=== PATIENT | female | born 1935 | race Caucasian/White ===

== ENCOUNTER 2017-02-05 08:22 | Outpatient (CLI) | payer MEDICARE, OTHER ==
[2017-02-05 12:34] LABS: #Eosinphils 0.2 thou/uL (0.0-0.7); #Lymphocytes 2.4 thou/uL (1.20-3.40); #Monocytes 0.3 thou/uL (0.11-0.59); #Neutrophils 2.5 thou/uL (1.40-6.50); %Basophils 0.9 % (0.0-1.0); %Eosinophils 4.4 % (0.0-10.0); %Monocytes 6.1 % (0.0-10.0); %Neutrophils 45.6 % (42.0-75.0); Hemoglobin 13.1 g/dL (12.0-16.0); Mean Corpuscular HGB CONC 32.2 g/dL (32.0-36.0); Mean Corpuscular Hemoglobin 28.7 pg (27.0-31.0); Mean Corpuscular Volume 89.1 fl (81.0-99.0); Mean Platelet Volume 6.8 fL (7.4-10.4); Platelet Count 245 thou/uL (130-400); RBC Distribution Width 11.6 % (11.5-14.5); Red Blood Cell (RBC) Count 4.58 mill/uL (4.20-5.40); White Blood Cell (WBC) Count 5.5 thou/uL (4.8-10.8)
[2017-02-05 12:46] LABS: ALT (SGPT) 9 U/L (8-55); AST (SGOT) 14 U/L (5-34); Albumin 4.2 g/dL (3.4-4.8); Alkaline Phosphatase 76 U/L (40-150); Anion Gap 17 mmol/L (10-20); BUN (Urea Nitrogen) 13 mg/dL (9.8-20.1); Bilirubin, Total 0.6 mg/dL (0.2-1.2); Calc. Creatinine Clearance 0 mL/min (70-130); Carbon Dioxide 21 mmol/L (23-31); Cardiac Risk 2.4 (Less than 4.5); Chloride 108 mmol/L (98-107); Cholesterol 167 mg/dl (< 200 Desired); Estimated GFR-MDRD 64; Globulin 2.8 g/dL (2.4-3.5); Glucose 90 mg/dL (83-110); HDL Cholesterol 69 mg/dL (>60 Neg Risk); LDL Cholesterol, Calculated 79 mg/dL; Potassium 4.1 mmol/L (3.5-5.1); Sodium 142 mmol/L (136-145); Triglycerides 93 mg/dL (Less than 150)
[2017-02-05 13:27] LABS: Bilirubin Negative (Negative); Blood, Urine Negative (Negative); Clarity Clear (Clear); Glucose, Urine (Dipstick) Negative (Negative); Leukocyte Negative (Negative); Nitrite Negative (Negative); Protein, Urine (Dipstick) Negative (Neg-Trace); Urobilinogen 0.2 mg/dL (0.2-1.0)
== END 2017-02-05 08:23 | disposition home or self-care (01) ==
LOC: NAVSJIPCSP 08:22
PROVIDERS: ATTEND Internal Medicine
DX: E78.5 Hyperlipidemia, unspecified (principal); I11.9 Hypertensive heart disease without heart failure; Z79.899 Other long term (current) drug therapy
CPT/HCPCS: 36415; 80053; 80061; 81003; 85025

== ENCOUNTER 2018-01-10 09:23 | Emergency (ER) | payer MEDICARE, OTHER ==
[2018-01-10 09:59] LABS: #Basophils 0.1 thou/uL (0.0-0.2); #Eosinphils 0.2 thou/uL (0.0-0.7); #Lymphocytes 2.2 thou/uL (1.20-3.40); #Monocytes 0.3 thou/uL (0.11-0.59); #Neutrophils 2.8 thou/uL (1.40-6.50); %Eosinophils 2.8 % (0.0-10.0); %Lymphocytes 40.3 % (21.0-51.0); %Monocytes 5.2 % (0.0-10.0); %Neutrophils 50.7 % (42.0-75.0); Hemoglobin 13.7 g/dL (12.0-16.0); Mean Corpuscular HGB CONC 32.3 g/dL (32.0-36.0); Mean Corpuscular Hemoglobin 28.2 pg (27.0-31.0); Mean Corpuscular Volume 87.4 fl (81.0-99.0); Mean Platelet Volume 6.9 fL (7.4-10.4); Platelet Count 267 thou/uL (130-400); RBC Distribution Width 11.5 % (11.5-14.5); Red Blood Cell (RBC) Count 4.85 mill/uL (4.20-5.40); White Blood Cell (WBC) Count 5.6 thou/uL (4.8-10.8)
[2018-01-10 10:15] LABS: CKMB 1.3 ng/mL (0-6.6); Troponin I Less than 0.010 ng/mL (< 0.028)
[2018-01-10 10:20] LABS: ALT (SGPT) 10 U/L (8-55); AST (SGOT) 15 U/L (5-34); Albumin 4.3 g/dL (3.4-4.8); Alkaline Phosphatase 79 U/L (40-150); Anion Gap 15 mmol/L (10-20); BUN (Urea Nitrogen) 9 mg/dL (9.8-20.1); Bilirubin, Total 0.5 mg/dL (0.2-1.2); CK (CPK) 118 U/L (29-168); Calc. Creatinine Clearance 0 mL/min (70-130); Calcium 9.2 mg/dL (7.8-10.44); Carbon Dioxide 23 mmol/L (23-31); Chloride 106 mmol/L (98-107); Estimated GFR-MDRD 73; Globulin 3.2 g/dL (2.4-3.5); Glucose 126 mg/dL (83-110); Potassium 3.7 mmol/L (3.5-5.1); Protein, Total 7.5 g/dL (6.0-8.3); Sodium 140 mmol/L (136-145)
[2018-01-10] MEDS ORDERED: Ibuprofen 200 MG TAB ONE (10:43)
[2018-01-10] MEDS ORDERED: Acetaminophen 325 MG TAB ONE (10:44)
--- NOTE | 2018-01-10 11:20 | RAD ---
CHEST ONE VIEW: History: Chest pain. FINDINGS: Cardiac silhouette is magnified by projection. Pulmonary vasculature unremarkable. Mediastinum midlin e. No lobar consolidation or evidence of pneumothorax. desk monitor leads overlie the chest. IMPRESSION: No active cardiopulmonary abnormalities are demonstrated. POS: [facility]
== END 2018-01-10 11:18 | disposition home or self-care (01) ==
LOC: NAV ERS 09:23
DX: M25.512 Pain in left shoulder (principal); E78.5 Hyperlipidemia, unspecified; I10 Essential (primary) hypertension; Z79.899 Other long term (current) drug therapy
CPT/HCPCS: 36415; 71045; 80053; 82553; 84484; 85025; 93005

== ENCOUNTER 2020-06-29 10:18 | Outpatient (CLI) | payer MEDICARE, OTHER ==
--- NOTE | 2020-06-29 10:39 | RAD ---
Frontal and lateral imaging of the thoracic spine with swimmer's lateral view: 06/29/2020 COMPARISON: None HISTORY: Upper back pain FINDINGS: There is multilevel disc space narrowing and degenerative endplate change within the imaged portion of the cervical spine. This is most prominent at the C5-6 level. There is no anterolisthesis or retrolisthesis at the cervicothoracic junction. Lateral imaging demons trates no significant anterolisthesis or retrolisthesis within the thoracic spine. No evidence for acute fracture or dislocation. Mild multilevel upper and mid thoracic spine disc space narrowing. IMPRESSION: Degenerative changes. No acute fracture.
--- NOTE | 2020-06-29 10:41 | RAD ---
Left shoulder 3 views HISTORY: Shoulder pain. FINDINGS: Acromioclavicular and glenohumeral alignment are maintained. Mild osteophytosis. No acute fracture, dislocation, or aggressive osseous erosions. IMPRESSION : Very mild osteoarthritic changes. No acute osseous abnormalities are demonstrated.
== END 2020-06-29 10:19 | disposition home or self-care (01) ==
LOC: NAV LAB 10:18 → NAV RAD 10:19
PROVIDERS: ATTEND Internal Medicine
DX: M25.512 Pain in left shoulder (principal); M54.9 Dorsalgia, unspecified; G45.3 Amaurosis fugax; M19.012 Primary osteoarthritis, left shoulder; M47.814 Spondylosis without myelopathy or radiculopathy, thoracic region
CPT/HCPCS: 72072

== ENCOUNTER 2020-12-13 09:34 | Emergency (ER) | payer MEDICARE, OTHER ==
[2020-12-13 10:54] LABS: #Basophils 0.1 thou/uL (0.0-0.2); #Eosinphils 0.2 thou/uL (0.0-0.7); #Lymphocytes 1.9 thou/uL (1.20-3.40); #Monocytes 0.3 thou/uL (0.11-0.59); #Neutrophils 2.9 thou/uL (1.40-6.50); %Eosinophils 3.3 % (0.0-10.0); %Lymphocytes 35.2 % (21.0-51.0); %Monocytes 5.3 % (0.0-10.0); %Neutrophils 55.3 % (42.0-75.0); Hemoglobin 13.7 g/dL (12.0-16.0); Mean Corpuscular Hemoglobin 28.5 pg (27.0-31.0); Mean Corpuscular Volume 91.8 fL (78.0-98.0); Mean Platelet Volume 6.9 fL (7.4-10.4); Platelet Count 288 thou/uL (130-400); RBC Distribution Width 11.5 % (11.5-14.5); White Blood Cell (WBC) Count 5.3 thou/uL (4.8-10.8)
[2020-12-13 10:57] LABS: ALT (SGPT) 12 U/L (8-55); AST (SGOT) 14 U/L (5-34); Albumin 4.2 g/dL (3.4-4.8); Alkaline Phosphatase 77 U/L (40-110); Anion Gap 15 mmol/L (10-20); BUN (Urea Nitrogen) 10 mg/dL (9.8-20.1); Bilirubin, Total 0.5 mg/dL (0.2-1.2); CK (CPK) 81 U/L (29-168); Calc. Creatinine Clearance 0 mL/min (70-130); Carbon Dioxide 24 mmol/L (23-31); Chloride 105 mmol/L (98-107); Globulin 2.9 g/dL (2.4-3.5); Glucose 98 mg/dL (83-110); Lipase 14 U/L (8-78); Potassium 3.8 mmol/L (3.5-5.1); Protein, Total 7.1 g/dL (5.8-8.1); Sodium 140 mmol/L (136-145)
== END 2020-12-13 12:04 | disposition home or self-care (01) ==
LOC: NAV ERS 09:34
DX: R07.9 Chest pain, unspecified (principal); E78.5 Hyperlipidemia, unspecified; E78.00 Pure hypercholesterolemia, unspecified; I10 Essential (primary) hypertension; Z79.82 Long term (current) use of aspirin; Z79.899 Other long term (current) drug therapy
CPT/HCPCS: 71046; 80053; 82550; 83690; 84484; 85025; 85379; 93005

== ENCOUNTER 2022-09-02 17:55 | Emergency (ER) | payer MEDICARE, OTHER ==
[2022-09-02 18:39] LABS: #Basophils 0.1 thou/uL (0.0-0.2); #Eosinphils 0.1 thou/uL (0.0-0.7); #Lymphocytes 2.5 thou/uL (1.20-3.40); #Monocytes 0.4 thou/uL (0.11-0.59); #Neutrophils 4.5 thou/uL (1.40-6.50); %Eosinophils 1.8 % (0.0-10.0); %Lymphocytes 32.9 % (21.0-51.0); %Monocytes 5.1 % (0.0-10.0); %Neutrophils 59.2 % (42.0-75.0); Hemoglobin 14.3 g/dL (12.0-16.0); Mean Corpuscular HGB CONC 32.9 g/dL (32.0-36.0); Mean Corpuscular Hemoglobin 29.9 pg (27.0-31.0); Mean Platelet Volume 7.2 fL (7.4-10.4); Platelet Count 286 10x3/uL (130-400); RBC Distribution Width 11.7 % (11.5-14.5); Red Blood Cell (RBC) Count 4.77 mill/uL (4.20-5.40); White Blood Cell (WBC) Count 7.5 10x3/uL (4.8-10.8)
[2022-09-02] MEDS ORDERED: Aspirin Chewable 81 MG TAB ONE (18:51)
[2022-09-02] MEDS ORDERED: Morphine 4 MG/ML VIAL ONE (18:51)
[2022-09-02] MEDS ORDERED: Ondansetron PF 4 MG/2 ML Vial ONE (18:51)
[2022-09-02 19:02] LABS: ALT (SGPT) 13 U/L (8-55); AST (SGOT) 18 U/L (5-34); Albumin 4.6 g/dL (3.4-4.8); Alkaline Phosphatase 72 U/L (40-110); Anion Gap 16 mmol/L (10-20); BUN (Urea Nitrogen) 18 mg/dL (9.8-20.1); Bilirubin, Total 0.6 mg/dL (0.2-1.2); Calc. Creatinine Clearance 0 mL/min (70-130); Calcium 9.8 mg/dL (7.8-10.44); Carbon Dioxide 23 mmol/L (23-31); Chloride 105 mmol/L (98-107); Estimated GFR 56; Globulin 3.3 g/dL (2.4-3.5); Glucose 139 mg/dL (83-110); Potassium 3.8 mmol/L (3.5-5.1); Protein, Total 7.9 g/dL (5.8-8.1); Sodium 140 mmol/L (136-145)
== END 2022-09-02 22:25 | disposition short-term general hospital (02) ==
LOC: NAV ERS 17:55
DX: G56.02 Carpal tunnel syndrome, left upper limb (principal); R07.89 Other chest pain; I10 Essential (primary) hypertension; E78.00 Pure hypercholesterolemia, unspecified
CPT/HCPCS: 71045; 80053; 84484; 85025; 93005; 96374; 96375; J2270; J2405